=== PATIENT | male | born 1980 | race Caucasian/White ===

== ENCOUNTER 2020-12-10 06:03 | Day surgery (SDC) | payer MEDICAID ==
[2020-12-10] MEDS ORDERED: ceFAZolin 2 GM in Sodium Chloride 0.9% 50 ML IV ONE (06:30)
[2020-12-10] MEDS ORDERED: metroNIDAZOLE/Normal Saline 500 MG in Premix Bag 1 BAG IV ONE (06:30)
[2020-12-10] MEDS ORDERED: ceFAZolin 2 GM in Premix Bag 1 BAG IV ONE (06:30)
[2020-12-10] MEDS ORDERED: Sodium Chloride 0.9% 1,000 ML IV SCH (06:30)
[2020-12-10] MEDS ORDERED: Lidocaine 1% with EPINEPHrine 1:100,000 50 ML MDV ONE (06:39)
[2020-12-10] MEDS ORDERED: Bupivacaine 0.5% 50 ML MDV ONE (06:39)
[2020-12-10] MEDS ORDERED: Dexamethasone 4 MG/ML SDV ONE (06:43)
[2020-12-10] MEDS ORDERED: Propofol 200 MG/20 ML SDV ONE (06:43)
[2020-12-10] MEDS ORDERED: Midazolam 1 MG/ML 2 ML SDV ONE (06:43)
[2020-12-10] MEDS ORDERED: Glycopyrrolate 0.2 MG/ML 5 ML MDV ONE (06:43)
[2020-12-10] MEDS ORDERED: Ondansetron 4 MG/2 ML SDV ONE (06:43)
[2020-12-10] MEDS ORDERED: Rocuronium 50 MG/5 ML Vial ONE (06:43)
[2020-12-10] MEDS ORDERED: fentaNYL 250 MCG/5 ML SDV ONE (06:43)
[2020-12-10] MEDS ORDERED: Succinylcholine 200 MG/10 ML MDV ONE (06:43)
[2020-12-10] MEDS ORDERED: Neostigmine Methylsulfate 1 MG/ML 5 ML Syringe ONE (06:43)
[2020-12-10] MEDS ORDERED: Zolpidem 5 MG Tab PO PRN (07:41)
[2020-12-10] MEDS ORDERED: Acetaminophen/HYDROcodone 325-5 MG Tab PO PRN (07:41)
[2020-12-10] MEDS ORDERED: Benzocaine/Cetylpyridinium/Menthol Lozenge MUCMEM PRN (07:41)
[2020-12-10] MEDS ORDERED: hydrOXYzine HCL 100 MG/2 ML SDV IM PRN (07:41)
[2020-12-10] MEDS ORDERED: Docusate Sodium 100 MG Cap PO PRN (07:41)
[2020-12-10] MEDS ORDERED: Ibuprofen 800 MG Tab PO ONE (10:00)
[2020-12-10 13:28] VITALS: BP 100/56; PULSE 87
--- NOTE | 2020-12-10 17:58 | OR ---
DATE OF PROCEDURE: 12/10/2020 SURGEON: Jakub Juarez MD PROCEDURE: Laparoscopic cholecystectomy. COMPLICATIONS: None. 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 PREOPERATIVE DIAGNOSES: Cholelithiasis, cholecystitis. POSTOPERATIVE DIAGNOSES: Cholelithiasis, cholecystitis. RISKS: Risks, benefits, alternatives, and limitations including, but not limited to infection, bleeding, cystic duct leaks, common bile duct injuries, hematoma, seroma, biloma, open surgery, chronic wounds, and chronic pain were all explained to the patient among other risks and he wished to proceed. ANESTHESIA: General. PROCEDURE IN DETAIL: The patient was placed in supine position. A curvilinear supraumbilical incision was made. A Veress needle was used to enter the abdomen without abnormality. A drop test was performed without abnormality. This was followed by an Optiview trocar after insufflation. Additional 10 and two 5 mm ports were entered under direct visualization. The gallbladder was retracted cephalad. The infundibulum was retracted inferolaterally. Using blunt dissection, a "clear view" of the gallbladder was obtained with a single pulsatile structure entering the gallbladder and a single non-pulsatile structure entering the gallbladder. These were subsequently clipped and transected. The remaining 1/3rd of the gallbladder was removed off the gallbladder bed without difficulty. This was delivered through the superior port without complication. The abdomen was re-insufflated. No bleeding was noted from the gallbladder bed. The pressure was then dropped to 7 and held for 1 minute. No abnormal bleeding was noted. The area was re-irrigated. The liquid was removed. Liquid was also removed from the pelvis. The entry point was inspected for enterotomy injury. None was noted. The air was removed and the wounds were closed with 3-0 Vicryl and 4-0 Vicryl in interrupted running fashion. Dermabond was applied. The patient tolerated the procedure well. Jakub Juarez MD /[id number]
--- NOTE | 2020-12-11 07:07 | OR ---
DATE OF PROCEDURE: 12/10/2020 SURGEON: Jakub Juarez MD PROCEDURES: 1. Transversus abdominis plane block bilaterally. 2. Rectus plane block bilaterally. COMPLICATION: None. 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 RISKS: Risks, benefits, alternatives, and limitations including, but not limited to infection, bleeding, and injury to abdominal structures were explained to the patient who wished to proceed. PROCEDURE IN DETAIL: The patient was placed in supine position. The right transversus plane was identified first. This was accessed using a 13 megahertz ultrasound probe. 20% of the solution was injected in this location. This was then repeated on the left side using same manner, same fashion, same technique, and same sequence. The bilateral rectus sheaths were then entered with 20% of the solution respectively, also under direct visualization. During this procedure, no inadvertent abdominal entry or crossing the peritoneum was noted. The needle was never advanced blindly. The patient tolerated the procedure well. Jakub Juarez MD /[id number]
== END 2020-12-10 13:40 | disposition home or self-care (01) ==
LOC: JP.SDS 06:03 → JP.MS 09:20 → JP.SDS 13:40
PROVIDERS: ATTEND Surgery
DX: K81.1 Chronic cholecystitis (principal); Z98.890 Other specified postprocedural states
CPT/HCPCS: 36415; 47562; 80053; 85027; A9270; J0171; J0330; J0690; J1100; J2250; J2405; J2704; J2710; J2795; J3010; J3490; J7030

== ENCOUNTER 2022-01-20 06:44 | Day surgery (SDC) | payer MEDICAID ==
[2022-01-20] MEDS ORDERED: fentaNYL 100 MCG/2 ML SDV ONE (07:02)
[2022-01-20] MEDS ORDERED: Midazolam 1 MG/ML 2 ML SDV ONE (07:02)
[2022-01-20] MEDS ORDERED: Propofol 200 MG/20 ML SDV ONE (07:03)
[2022-01-20] MEDS ORDERED: Dextrose 5%-Lactated Ringers 1,000 ML IV SCH (07:15)
[2022-01-20] MEDS ORDERED: Scopolamine 1.5 MG Transdermal Patch TOP SCH (08:30)
[2022-01-20 09:28] VITALS: BP 109/76; PULSE 68
[2022-01-22 11:11] LABS: H. PYLORI BREATH TEST Negative (Negative)
== END 2022-01-20 09:40 | disposition home or self-care (01) ==
LOC: JP.SDS 06:44
PROVIDERS: ATTEND Surgery
DX: K29.90 Gastroduodenitis, unspecified, without bleeding (principal); K20.90 Esophagitis, unspecified without bleeding; Z86.19 Personal history of other infectious and parasitic diseases; Z98.84 Bariatric surgery status
CPT/HCPCS: 43239; 83013; 87081; J2250; J2704; J3010; J7121

== ENCOUNTER 2024-09-28 08:07 | Day surgery (SDC) | payer MEDICAID ==
[2024-09-28] MEDS ORDERED: Sodium Chloride 0.9% 1,000 ML IV SCH (08:30)
[2024-09-28] MEDS: Lactated Ringers 1,000 ML IV SCH (08:58)
[2024-09-28] MEDS ORDERED: Midazolam 1 MG/ML 2 ML SDV ONE (09:33)
[2024-09-28] MEDS ORDERED: fentaNYL 100 MCG/2 ML SDV ONE (09:33)
[2024-09-28] MEDS ORDERED: Propofol 200 MG/20 ML SDV ONE ×3 (09:33→10:21)
[2024-09-28 12:35] VITALS: BP 126/89; PULSE 90
[2024-09-28] MEDS: Ondansetron 4 MG/2 ML SDV IVPUSH ONE (12:57)
[2024-09-28] MEDS: Scopalamine 1mg/3day Transdermal Patch TOP ONE (12:57)
== END 2024-09-28 13:28 | disposition home or self-care (01) ==
LOC: JP.SDS 08:07
PROVIDERS: ATTEND Surgery
DX: Z12.11 Encounter for screening for malignant neoplasm of colon (principal)
CPT/HCPCS: 00812; 45378; A9270; J2250; J2405; J2704; J3010; J7120